=== PATIENT | female | born 1970 | race Caucasian/White ===

== ENCOUNTER 2021-06-29 09:54 | Emergency (ER) | payer OTHER, SELFPAY ==
--- NOTE | 2021-06-29 09:57 | ED.URI ---
HPI - URI/Sore Throat General Chief Complaint: Upper Respiratory Infection Stated Complaint: sinus issues Time Seen by Provider: 06/29/21 09:57 Source: patient and RN notes reviewed History of Present Illness HPI Narrative: Patient is a 51-year-old female who presents the urgent care with complaints of sinus congestion, postnasal drainage, and mild cough. Patient denies any fever, chills, nausea or vomiting. States that she was recently exposed to COVID over 1 week ago however her symptoms have been ongoing for approximately 1 month. Patient states that a few weeks ago she did call her PCP and was placed on an antibiotic and nasal spray. Patient states that it did nothing . Patient states that symptoms have not changed in the last month. No other acute complaints. No acute distress noted. Patient aware of the plan of care. Some parts of this dictation were generated by voice recognition software and may contain typographical and/or grammatical inaccuracies. Related Data Home Medications Medication Instructions Recorded Confirmed fluticasone propionate 50 mcg INTRANASAL DAILY 06/29/21 06/29/21 hydrochlorothiazide 25 mg PO DAILY 06/29/21 06/29/21 lisinopril 40 mg PO DAILY 06/29/21 06/29/21 meloxicam 15 mg PO DAILY 06/29/21 06/29/21 sertraline 100 mg PO BID 06/29/21 06/29/21 venlafaxine 37.5 mg PO DAILY 06/29/21 06/29/21 Allergies Allergy/AdvReac Type Severity Reaction Status Date / Time Penicillins Allergy Unknown Hives / Unverified 11/03/16 17:26 Red Face Review of Systems Review of Systems: CONSTITUTIONAL: Denies fever, chills, or sweats. EYES: Denies visual changes, redness, or discharge. ENT: Reports of moderate sinus congestion, rhinorrhea, postnasal drainage CARDIOVASCULAR: Denies chest pain, palpitations, or edema. RESPIRATORY: Reports a mild cough without dyspnea GASTROINTESTINAL: Denies abdominal pain, nausea, vomiting, or diarrhea. GENITOURINARY: Denies dysuria or hematuria. SKIN: Denies rash or itching. MUSCULOSKELETAL: Denies back pain, joint pain, or myalgia. NEUROLOGIC: Denies headache, numbness, or weakness. All other systems reviewed are negative, except as documented in HPI. PMFSH Comments At the time of my signature, I reviewed and agree with the nursing past medical, surgical, social, and family history. There is no relevant family history pertinent to the patient complaint. Exam Narrative: GENERAL: This is a well-nourished, well-developed patient, in no apparent distress. HEAD: normocephalic, atraumatic. Frontal sinus tenderness EYES: PERRL. Sclera clear/white. Vision is grossly intact. EARS: External ears normal, auditory canals clear and without drainage, TMs normal without perforation. Hearing grossly intact. NOSE: External nose normal with no obvious nasal discharge, nares without redness, clear to yellow rhinorrhea THROAT: Mucous membranes moist, posterior pharynx clear. Mild postnasal drainage NECK: Neck supple, non-tender without lymphadenopathy, masses or thyromegaly. CARDIOVASCULAR: Regular rate and rhythm without murmurs, gallops, or rubs. RESPIRATORY: Clear to auscultation. Breath sounds equal bilaterally. No wheezes, rales, or rhonchi. SKIN: warm, intact with no suspicious lesions or rash, good texture and turgor. NEURO: awake, alert, and oriented to person, place and time. There were no obvious focal neurologic abnormalities. EXTREMITIES: No clubbing, cyanosis, or edema. Course Course Level of Care: Express Care Visit Vital Signs Vital signs: Vital Signs Temperature 98.1 F 06/29/21 10:05 Pulse Rate 83 06/29/21 10:05 Respiratory Rate 18 06/29/21 10:05 Blood Pressure 134/78 06/29/21 10:05 Pulse Oximetry 97 06/29/21 10:05 Temperature 98.1 F 06/29/21 10:05 Pulse Rate 83 06/29/21 10:05 Respiratory Rate 18 06/29/21 10:05 Blood Pressure 134/78 06/29/21 10:05 Pulse Oximetry 97 06/29/21 10:05 Reviewed MDM - URI/Sore Throat MDM Narrative
[2021-06-29 10:05] VITALS: BP 134/78; PULSE 83; RESP 18; TEMP 36.7; O2SAT 97
== END 2021-06-29 10:59 | disposition home or self-care (01) ==
PROVIDERS: Emergency Provider Nurse Practitioner Family
DX: J32.9 Chronic sinusitis, unspecified (principal); E78.00 Pure hypercholesterolemia, unspecified; I10 Essential (primary) hypertension; M19.90 Unspecified osteoarthritis, unspecified site; F41.9 Anxiety disorder, unspecified; F32.A Depression, unspecified
CPT/HCPCS: 81003; 99203; G0463

== ENCOUNTER 2021-10-19 12:13 | Emergency (ER) | payer OTHER, SELFPAY ==
[2021-10-19 12:20] VITALS: BP 120/65; PULSE 99; RESP 20; TEMP 36.8; O2SAT 97
--- NOTE | 2021-10-19 12:50 | ED.ANIMALBIT ---
HPI - Animal Bite General Chief Complaint: Animal Bite Stated Complaint: Cat Bite Time Seen by Provider: 10/19/21 12:50 Source: patient, RN notes reviewed and old records reviewed Mode of arrival: ambulatory Limitations: no limitations History of Present Illness HPI narrative: 51 year old female who presents to express care with complaints of being bit by her cat on Monday. She states that she went to let a cat back in and stepped on this cat by accident and cat bit her in the right medial lower leg region which happened on the 17 of October. Patient has another puncture wound in same general aspect of cat punctures anterior right lower leg that was from other injury. Patient states she has become concerned because area has increased in redness and some firmness. Patient reports that her tetanus is not up to date. She denies any fevers, chills or sweats. Patient has cleansed wounds and applied antibacterial ointment and applied band-aids. MD complaint: animal bite Onset (ago): day(s) (2) Animal: cat Description of animal: household pet and immunizations UTD Mechanism: bite Location: other (right lower leg) Location - Extremities: Right: lower leg Related Data Patient tetanus UTD: No (updated in clinic today) Home Medications Medication Instructions Recorded Confirmed hydrochlorothiazide 25 mg PO DAILY 06/29/21 10/19/21 lisinopril 40 mg PO DAILY 06/29/21 10/19/21 meloxicam 15 mg PO DAILY 06/29/21 10/19/21 sertraline 100 mg PO BID 06/29/21 10/19/21 venlafaxine 37.5 mg PO DAILY 06/29/21 10/19/21 etanercept [Enbrel SureClick] 50 mg SUBCUT WEEKLY 10/19/21 10/19/21 furosemide 20 mg PO DAILY 10/19/21 10/19/21 gabapentin 300 mg PO TID 10/19/21 10/19/21 Allergies Allergy/AdvReac Type Severity Reaction Status Date / Time Penicillins Allergy Unknown Hives / Verified 10/19/21 12:56 Red Face Review of Systems Review of Systems: CONSTITUTIONAL: Denies fever, chills, or sweats. EYES: Denies visual changes, redness, or discharge. ENT: Denies rhinorrhea, congestion, sore throat, or otalgia. CARDIOVASCULAR: Denies chest pain, palpitations, or edema. RESPIRATORY: Denies cough or dyspnea. GASTROINTESTINAL: Denies abdominal pain, nausea, vomiting, or diarrhea. GENITOURINARY: Denies dysuria or hematuria. SKIN: Positive for 8cm X 6 cm light red tissue to anterior lower right leg with 5 puncture wounds noted in area, no drainage noted, mild discomfort voiced. MUSCULOSKELETAL: Denies back pain, joint pain, or myalgia. NEUROLOGIC: Denies headache, numbness, or weakness. PSYCHIATRIC: Positive for history of anxiety or depression. All systems reviewed & are unremarkable except as noted in HPI and below PMFSH Past Medical History Medical History (Updated 10/20/21 @ 18:51 by Tiara Perez NP) Anxiety and depression Hx of psoriatic arthritis Hypercholesteremia Hypertension Neuropathy Surgical History Surgical History (Updated 10/20/21 @ 18:53 by Tiara Perez NP) H/O: hysterectomy History of tonsillectomy History of total right knee replacement (TKR) Hx of appendectomy Previous section Social History Social History (Updated 10/20/21 @ 18:55 by Tiara Perez NP) Smoking status: Former smoker Tobacco type: cigarettes Alcohol intake: current Alcohol use details: social Substance use type: does not use Gender identity (if verbalized by the patient): Female Comments At time of signature, agree with nursing past medical, surgical, social and family history. There is no relevant family history pertinent to the presenting complaint Exam Narrative: GENERAL: Well-appearing, well-nourished, and in no acute distress. HEAD: Normocephalic, atraumatic. EYES: PERRLA and EOMI. ENT: Nares clear, no rhinorrhea or epistaxis. Mucous membranes moist. NECK: Supple. no lymphadenopathy CHEST: Clear to auscultation. No respiratory distress.SAO2 97% on room air no tachypnea or any cough noted HEART: Regular rate and
[2021-10-19] MEDS: TETANUS,DIPHTHERIA,AC PERTUSSIS ADULT (0.5 ML) BOOSTRIX IM (13:00)
== END 2021-10-19 13:22 | disposition home or self-care (01) ==
PROVIDERS: Emergency Provider Registered Nurse
DX: S81.851A Open bite, right lower leg, initial encounter (principal); Z79.1 Long term (current) use of non-steroidal anti-inflammatories (NSAID); Z87.891 Personal history of nicotine dependence; Z23 Encounter for immunization; W55.01XA Bitten by cat, initial encounter
CPT/HCPCS: 90471; 90715; 99213; G0463